=== PATIENT | female | born 1955 | race Caucasian/White ===

== ENCOUNTER → 2017-05-05 | Outpatient (CLI) | payer OTHER ==
--- NOTE | 2017-05-14 10:41 | RAD ---
DATE: 05/05/2017 EXAM: MAMMO STORM SCREENING BILATERAL HISTORY: Routine screening COMPARISON: 04/19/2015 This study was interpreted with the benefit of Computerized Aided Detection (CAD). The breast parenchyma is heterogeneously dense, which could reduce sensitivity of mammography. Breast parenchyma level C. FINDINGS: 2-D and 3-D tomosynthesis imaging was performed in CC and MLO projections. No new or enlarging breast densities are seen. Benign type calcifications are noted. No suspicious microcalcifications have developed. IMPRESSION: Stable mammograms without evidence of malignancy. BI-RADS CATEGORY: 2 BENIGN FINDING(S) RECOMMENDED FOLLOW-UP: 12M 12 MONTH FOLLOW-UP PQRS compliance statement: Patient information was entered into a reminder system with a target due date for the next mammogram. Mammography is a sensitive method for finding small breast cancers, but it does not detect them all and is not a substitute for careful clinical examination. A negative mammogram does not negate a clinically suspicious finding and should not result in delay in biopsying a clinically suspicious abnormality. "Our facility is accredited by the [employer] Mammography [employer]."
== END | disposition home or self-care (01) ==
LOC: MAMMO 09:02
PROVIDERS: ATTEND Family Medicine
DX: Z12.31 Encounter for screening mammogram for malignant neoplasm of breast (principal)
CPT/HCPCS: 77063; 77067

== ENCOUNTER 2018-01-21 13:30 | Emergency (ER) | payer OTHER ==
--- NOTE | 2018-01-21 14:38 | PHYS DOC ---
Past History Past Medical History: High Cholesterol, Hypertension Past Surgical History: Cholecystectomy, Tubal ligation Alcohol Use: None Drug Use: None Adult General Chief Complaint Chief Complaint: COUGH HPI HPI Patient is a 62-year-old female who presents with complaint of cough and mid thoracic pain. Patient states that several days ago she was eating grapes and had choked on a piece of great. She states that initially she was okay but a couple of days later she started having a cough which has become productive of creamy white sputum. She denies any fever. She indicates that the area in her mid thoracic region is sharp and stabbing in nature and is worsened with deep breathing. Review of Systems Review of Systems Constitutional: Denies fever or chills [] Respiratory: Complains of cough without shortness of breath [] Cardiovascular: No additional information not addressed in HPI [] GI: Denies abdominal pain, nausea, vomiting or diarrhea [] Musculoskeletal: Complains of midthoracic back pain[] Physical Exam Physical Exam Constitutional: Well developed, well nourished, no acute distress, non-toxic appearance. [] Neck: Normal range of motion, no tenderness, supple, no stridor. [] Cardiovascular: Regular rate and rhythm[] Lungs & Thorax: Bilateral breath sounds clear to auscultation [] Back: There is tenderness to palpation with tissue texture change around T7 on the right.. [] Extremities: No tenderness, no cyanosis, no clubbing, ROM intact, no edema. [] Current Patient Data Vital Signs Vital Signs Date Time Temp Pulse Resp B/P (MAP) Pulse Ox O2 Delivery O2 Flow Rate FiO2 01/21/18 14:13 98.5 99 20 96 EKG EKG [] Radiology/Procedures Radiology/Procedures [] Course & Med Decision Making Course & Med Decision Making Pertinent Labs and Imaging studies reviewed. (See chart for details) [] Dragon Disclaimer Dragon Disclaimer This electronic medical record was generated, in whole or in part, using a voice recognition dictation system. Departure Departure: Impression: Primary Impression: Aspiration into airway Additional Impression: Mid back pain on right side Disposition: 01 HOME, SELF-CARE Condition: STABLE Referrals: AMRITA STEVENSON MD (PCP) Patient Instructions: Aspiration Pneumonia, Back Pain, Adult Scripts Amoxicillin/Potassium Clav (AUGMENTIN 875-125 TABLET) 1 Each Tablet 1 TAB PO BID for infection, #20 TAB Prov: JOHN WELCH Jr. DO 01/21/18 Problem Qualifiers Primary Impression: Aspiration into airway Encounter type: initial encounter Qualified Codes: T17.908A - Unspecified foreign body in respiratory tract, part unspecified causing other injury, initial encounter JOHN WELCH Jr. DO Jan 21, 2018 14:38
[2018-01-21] MEDS ORDERED: AMOX1TAB61 PO (14:42)
--- NOTE | 2018-01-21 14:56 | RAD ---
AP and Lateral Views of the Chest 01/21/2018 2:30 PM Indication: COUGH WITH POSSIBLE ASPIRATION TODAY Comparison: None Findings: There is no focal consolidation or infiltrate identified. The cardiomediastinal silhouette is within normal limits. There is no evidence of pneumothorax or pleural effusion. No acute osseous abnormalities are identified. Impression: No evidence of acute cardiopulmonary process. Electronically signed by: Daniel Singer MD (01/21/2018 2:53 PM) [id number]
[2018-01-21 15:16] VITALS: BP 152/63
== END 2018-01-21 15:17 | disposition home or self-care (01) ==
LOC: ER 13:30
DX: T17.920A Food in respiratory tract, part unspecified causing asphyxiation, initial encounter (principal); M54.6 Pain in thoracic spine; E78.00 Pure hypercholesterolemia, unspecified; I10 Essential (primary) hypertension; Z90.49 Acquired absence of other specified parts of digestive tract; Z98.51 Tubal ligation status; X58.XXXA Exposure to other specified factors, initial encounter; Y93.89 Activity, other specified; Y92.89 Other specified places as the place of occurrence of the external cause; Y99.8 Other external cause status
CPT/HCPCS: 71046; 99283

== ENCOUNTER → 2019-09-29 | Outpatient (CLI) | payer MEDICARE, OTHER ==
[~2019-09-29] MED LIST: AMOX1TAB61 PO
--- NOTE | 2019-09-29 12:09 | RAD ---
DATE: 09/29/2019 9:59 AM EXAM: MAMMO STORM SCREENING BILATERAL HISTORY: Screening COMPARISON: 05/05/2017 Bilateral CC and MLO views of the breasts were performed. Bilateral breast tomosynthesis was performed in CC and MLO projections. This study was interpreted using Computerized Aided Detection (CAD). FINDINGS: Breast Density: HETERO The breast parenchyma Is heterogeneously dense, which could reduce sensitivity of mammography. Breast parenchyma level C Negative left mammogram. Focal asymmetry middle third upper outer right breast at the approximate 10:00 position 6 to 7 cm from the nipple seen on both 2-D and 3-D images (image 43 of 72 on the CC tomographic series and less well seen but likely on image 37 of 78 on the MLO series) needs additional imaging with spot compression views, full-field lateral view and possible targeted right breast ultrasound. IMPRESSION: Right breast focal asymmetry, findings for which additional imaging is advised. BI-RADS CATEGORY: 0 INCOMPLETE: NEEDS ADDITIONAL IMAGING EVALUATION AND/OR PRIOR MAMMOGRAMS FOR COMPARISON. RECOMMENDED FOLLOW-UP: ADD ADDITIONAL IMAGING The patient will be contacted to return for additional imaging and a supplemental report will follow. PQRS compliance statement: Patient information was entered into a reminder system with a target due date for the next mammogram. Mammography is a sensitive method for finding small breast cancers, but it does not detect them all and is not a substitute for careful clinical examination. A negative mammogram does not negate a clinically suspicious finding and should not result in delay in biopsying a clinically suspicious abnormality. "Our facility is accredited by the [employer] Mammography Program."
== END ==
LOC: MAMMO 09:50
PROVIDERS: ATTEND Family Medicine
DX: Z12.31 Encounter for screening mammogram for malignant neoplasm of breast (principal)
CPT/HCPCS: 77063; 77067

== ENCOUNTER → 2019-10-12 | Outpatient (CLI) | payer MEDICARE, OTHER ==
--- NOTE | 2019-10-12 14:33 | RAD ---
Examination: 1. Digital diagnostic right mammogram. 2. Limited right breast ultrasound. INDICATION: 64-year-old woman recalled from screening for asymmetry in the lateral right breast. On directed questioning, patient denies any palpable area of concern and reports previous imaging evaluation of her lateral right breast. COMPARISON: Bilateral mammograms of 04/05/2014, 09/29/2019 and limited left breast ultrasound of 04/05/2014. TECHNIQUE: Spot CC and MLO views of the right breast as well as a full-field 2-D ML view of the right breast were obtained. Targeted ultrasound of the right breast was also performed. FINDINGS: Additional views right breast showed a change in configuration of the questioned asymmetry in a pattern compatible with overlap of dense fibroglandular tissue. Heterogeneously dense breast tissue. Additional targeted ultrasound of the lateral right breast revealed a ridge of dense fibroglandular tissue with no suspicious sonographic abnormality. In the absence of a clinical concern, no additional imaging of the right breast was pursued at this visit. IMPRESSION: Benign findings on right diagnostic mammogram and targeted breast ultrasound. No evidence of malignancy. Recommend return to routine screening next doing one year. BI-RADS Category 2 Benign findings
== END | disposition home or self-care (01) ==
LOC: MAMMO 12:29
PROVIDERS: ATTEND Family Medicine
DX: R92.2 Inconclusive mammogram (principal)
CPT/HCPCS: 76641; 77065

== ENCOUNTER → 2021-01-22 | Outpatient (CLI) | payer MEDICARE, OTHER ==
--- NOTE | 2021-01-22 14:43 | RAD ---
INDICATION: 65 years of age asymptomatic female patient presents for screening mammography. TECHNIQUE: Full field craniocaudal and mediolateral oblique images of both breasts were obtained usi ng digital technique with tomosynthesis and also analyzed with computer-aided detection software. COMPARISON: Prior mammographic imaging dating 09/29/2019 05/05/2017. BREAST COMPOSITION: Category C: The breast tissue is heterogeneously dense, which could obscure detec tion of small masses. FINDINGS: Benign calcifications are present. The parenchymal pattern appears stable. No suspicious masses, microcalcifications or architectural distortion is present to suggest malignanc y in either breast. The visualized axillae are unremarkable. IMPRESSION: No mammographic evidence of malignancy. RECOMMENDATION: Annual screening mammography is recommended, unless clinically indicated sooner based on symptoms or change in physical exam. BIRADS 2: BENIGN This study was interpreted with the benefit of Computerized Aided Detection (CAD). ?Your patient's mammogram demonstrates that she has dense breast tissue (breast density category C or D), which could hide abnormalities, and if she has other risk factors for breast cancer that have be en identified, she might benefit from supplemental screening tests that may be suggested by you as he r ordering physician. Dense breast tissue, in and of itself, is a relatively common condition. Theref ore, this information is not provided to cause undue concern, but rather to raise your awareness and to promote discussion with your patient regarding the presence of other risk factors, in addition to dense breast tissue. Your patient's mammography results will be sent to her. Patient information is entered into the reminder system with a target due date for the next screening mammogram. Mammography is the most sensitive method for finding small breast cancers, but it does not detect the m all and is not a substitute for careful clinical examination. A negative mammogram does not negate a clinically suspicious finding and should not result in delay in biopsying a clinically suspicious a bnormality. "Our facility is accredited by the [employer] Mammography Program." Electronically signed by: Dung Leone MD (01/22/2021 2:40 PM) [id number]
== END ==
LOC: MAMMO 09:13
PROVIDERS: ATTEND Family Medicine
DX: Z12.31 Encounter for screening mammogram for malignant neoplasm of breast (principal)
CPT/HCPCS: 77063; 77067